=== PATIENT | male | born 1955 | race Caucasian/White ===

== ENCOUNTER 2017-10-07 01:58 | Emergency (ER) | payer BC ==
[~2017-10-07] VITALS: Ht 170.2 cm; Wt 95.4 kg
[~2017-10-07 01:58] MED LIST: AMLO2.5T45 PO; ASPI-785; CARV25TA47 PO; FURO-151; LOSA100T14 PO
[2017-10-07] MEDS ORDERED: ENALAPRIL 2.5MG/2ML VIAL 2ML IV ONE ×2 (02:29→02:30)
[2017-10-07 02:31] LABS: INR 1.1
[2017-10-07 02:32] LABS: BASOPHILS % 0.9 % (0.0-2.0); EOSINOPHILS % 5.3 % (0.0-5.0); HEMATOCRIT. 44.4 % (42.0-52.0); HEMOGLOBIN. 14.6 g/dL (14.0-18.0); LYMPHOCYTES % 19.3 % (20.0-50.0); MEAN CORPUSCULAR HEMOGLOBIN 29.6 pg (28.0-32.0); MEAN CORPUSCULAR VOLUME 89.6 fL (80.0-94.0); MEAN PLATELET VOLUME 10.2 fl (7.4-10.4); MONOCYTES % 10.7 % (2.0-8.0); NEUTROPHILS % 63.8 % (40.0-76.0); PLATELET 174 x1000/uL (130-400); RED BLOOD CELL COUNT 4.95 mill/uL (4.7-6.1); RED CELL DISTRIBUTION WIDTH 16.4 % (11.6-14.6)
[2017-10-07 02:41] LABS: CARBON DIOXIDE 20 mEq/L (21-32); CHLORIDE 109 mEq/L (98-107); ETHANOL BLOOD < 10 mg/dL; TROPONIN I 0.04 ng/mL (0.00-0.04)
[2017-10-07] MEDS ORDERED: NICARDIPINE 100 MG in SODIUM CHLORIDE 0.9% 60 ML IV ONE (02:45)
[2017-10-07] MEDS ORDERED: ALTEPLASE 100MG/VIAL IV SCH (02:55)
[2017-10-07] MEDS ORDERED: ALTEPLASE IV SCH (03:00)
[2017-10-07] MEDS ORDERED: WATER FOR INJECTION STERILE IV SCH (03:00)
[2017-10-07 03:10] LABS: CLARITY URINE CLEAR (CLEAR); COLOR URINE DARK YELLOW (YELLOW); GLUCOSE URINE NEGATIVE (NEGATIVE); KETONES URINE NEGATIVE (NEGATIVE); LEUKOCYTE ESTERASE URINE NEGATIVE (NEGATIVE); NITRITE URINE NEGATIVE (NEGATIVE); OCCULT BLOOD URINE NEGATIVE (NEGATIVE); PROTEIN URINE 2+ (NEGATIVE)
[2017-10-07 03:21] LABS: *AMPHETAMINES SCREEN URINE NEGATIVE (NEGATIVE); *BARBITURATES SCREEN URINE NEGATIVE (NEGATIVE); *BENZODIAZEPINES SCREEN URINE NEGATIVE (NEGATIVE); *COCAINE SCREEN URINE NEGATIVE (NEGATIVE); CANNABINOID URINE SCREEN NEGATIVE (NEGATIVE); METHADONE URINE SCREEN NEGATIVE (NEGATIVE); OPIATES URINE SCREEN NEGATIVE (NEGATIVE); PHENCYCLIDINE URINE SCREEN NEGATIVE (NEGATIVE)
[2017-10-07 03:35] VITALS: BP 128/91
== END 2017-10-07 03:50 | disposition short-term general hospital (02) ==
LOC: ER 01:58
DX: I63.9 Cerebral infarction, unspecified (principal); J45.909 Unspecified asthma, uncomplicated; R29.810 Facial weakness; I10 Essential (primary) hypertension; Z79.82 Long term (current) use of aspirin; R41.82 Altered mental status, unspecified
CPT/HCPCS: 36415; 37195; 70450; 71010; 80053; 80305; 81001; 84484; 85025; 85610; 86850; 86900; 86901; 93005; 99285; G0482; J2997; J3490; Z7610; J7050

== ENCOUNTER 2022-11-29 00:42 | Inpatient (IN) | payer BC, MEDICARE ==
[~2022-11-29] VITALS: Ht 167.6 cm; Wt 92.2 kg
[~2022-11-29 00:42] MED LIST changes: -LOSA100T14 PO; +LOSA100T32 PO
[2022-11-29] MEDS ORDERED: PREDNISONE 20MG TABLET PO STA (01:21)
[2022-11-29] MEDS ORDERED: ALBUTEROL (0.083%) 2.5MG/3ML NEB HHN STA (01:21)
[2022-11-29] MEDS ORDERED: IPRATROPIUM BROMIDE (0.02%) 0.5MG/2.5ML NEB HHN STA (01:21)
[2022-11-29] MEDS ORDERED: MAGNESIUM 2 G PREMIX 50 ML IV ONE (01:30)
[2022-11-29 02:37] LABS: HEMATOCRIT. 43.2 % (42.0-52.0); HEMOGLOBIN. 14.8 g/dL (14.0-18.0); MEAN CORPUSCULAR HEMOGLOBIN 31.3 pg (28.0-32.0); MEAN CORPUSCULAR VOLUME 91.3 fL (80.0-94.0); MEAN PLATELET VOLUME 11.3 fl (7.4-10.4); PLATELET 171 x1000/uL (130-400); RED BLOOD CELL COUNT 4.74 mill/uL (4.7-6.1); RED CELL DISTRIBUTION WIDTH 13.4 % (11.6-14.6)
[2022-11-29 02:40] LABS: CHLORIDE 108 mEq/L (98-107)
[2022-11-29 04:47] LABS: PLATELET ESTIMATE NORMAL
[2022-11-29] MEDS ORDERED: IPRATROPIUM/ALBUTEROL 0.5-3(2.5)MG/3ML NEB HHN PRN (14:15)
[2022-11-29 16:21] VITALS: BP 155/94
[2022-11-29 16:37] VITALS: BP 155/94
[2022-11-29] MEDS: ASPIRIN 81MG TABLET PO SCH (16:49)
[2022-11-29] MEDS: PANTOPRAZOLE 40MG DR TABLET PO SCH (20:06)
[2022-11-29 20:16] VITALS: BP 152/94
[2022-11-29] MEDS ORDERED: ENOXAPARIN 40MG/0.4ML SYR SUBCUT SCH (21:00)
[2022-11-29] MEDS ORDERED: ATORVASTATIN CALCIUM 40MG TABLET PO SCH (21:00)
[2022-11-29] MEDS ORDERED: IOHEXOL-350 100 ML BOTTLE ONE (23:13)
[2022-11-30 00:16] VITALS: BP 152/96
[2022-11-30] MEDS: FUROSEMIDE 40MG/4ML VIAL IVP SCH ×2 (03:37→08:27)
[2022-11-30] MEDS: METHYLPREDNISOLONE SOD SUCC 40 MG/ML VIAL IV SCH ×3 (03:37→18:01)
[2022-11-30] MEDS: POTASSIUM CHLORIDE 20MEQ TABLET SR PO SCH ×2 (03:38→08:27)
[2022-11-30] MEDS: CARVEDILOL 6.25 MG TABLET PO SCH ×2 (03:41→08:27)
[2022-11-30 04:16] VITALS: BP 138/80
[2022-11-30 05:52] LABS: BASOPHILS % 0.3 % (0.0-2.0); HEMATOCRIT. 41.2 % (42.0-52.0); HEMOGLOBIN. 14.2 g/dL (14.0-18.0); LYMPHOCYTES % 7.6 % (20.0-50.0); MEAN CORPUSCULAR HEMOGLOBIN 31.9 pg (28.0-32.0); MEAN CORPUSCULAR VOLUME 92.4 fL (80.0-94.0); MONOCYTES % 9.1 % (2.0-8.0); PLATELET 187 x1000/uL (130-400); RED BLOOD CELL COUNT 4.46 mill/uL (4.7-6.1); RED CELL DISTRIBUTION WIDTH 13.2 % (11.6-14.6)
[2022-11-30] MEDS: PANTOPRAZOLE 40MG DR TABLET PO SCH (06:32)
[2022-11-30 06:53] LABS: CHLORIDE 106 mEq/L (98-107)
[2022-11-30 08:00] VITALS: BP 129/91
[2022-11-30] MEDS: ASPIRIN 81MG TABLET PO SCH (08:27)
[2022-11-30] MEDS ORDERED: IPRATROPIUM/ALBUTEROL 0.5-3(2.5)MG/3ML NEB HHN SCH (09:00)
[2022-11-30] MEDS ORDERED: LOSARTAN POTASSIUM 50 MG TABLET PO SCH (09:00)
[2022-11-30] MEDS ORDERED: FUROSEMIDE 20MG/2ML VIAL IVP SCH (09:00)
[2022-11-30 12:00] VITALS: BP 120/75
[2022-11-30 16:00] VITALS: BP 106/67
[2022-11-30] MEDS ORDERED: ALBU18HF2 IH (16:37)
[2022-11-30] MEDS ORDERED: FLUT1DIS3 INH (16:37)
[2022-11-30] MEDS ORDERED: P20 MT (16:37)
[2022-11-30 18:41] VITALS: BP 106/67
[2022-11-30] MEDS ORDERED: FAMOTIDINE 20MG TABLET PO SCH (21:00)
== END 2022-11-30 23:10 | disposition home or self-care (01) | DRG 280 ==
LOC: ER 00:45 → 3WST 05:18 → EDBEDREQTM 05:22 → EDBEDREQ 05:22
PROVIDERS: ADMIT Internal Medicine; ATTEND Internal Medicine
DX: I11.0 Hypertensive heart disease with heart failure (principal); I50.23 Acute on chronic systolic (congestive) heart failure; I21.4 Non-ST elevation (NSTEMI) myocardial infarction; J96.01 Acute respiratory failure with hypoxia; J44.9 Chronic obstructive pulmonary disease, unspecified; E78.5 Hyperlipidemia, unspecified; I45.10 Unspecified right bundle-branch block; E78.00 Pure hypercholesterolemia, unspecified; R07.89 Other chest pain; J06.9 Acute upper respiratory infection, unspecified; Z79.51 Long term (current) use of inhaled steroids; Z86.73 Personal history of transient ischemic attack (TIA), and cerebral infarction without residual deficits; Z82.49 Family history of ischemic heart disease and other diseases of the circulatory system; Z79.899 Other long term (current) drug therapy; Z79.82 Long term (current) use of aspirin
CPT/HCPCS: 36415; 71045; 71275; 80048; 80053; 82553; 83880; 84484; 85025; 85379; 87426; 93005; 93306; 94640; 99285; J1650; J1940; J2920; J3475; J7512; Q9967